=== PATIENT | male | born 1990 | race Caucasian/White ===

== ENCOUNTER 2017-12-02 09:15 | Inpatient (IN) | payer OTHER ==
[2017-12-02] MEDS: CEFAZOLIN 1 GM/50 ML (PMX) 50 ML IVPB (10:00)
[2017-12-02 10:21] LABS: ADD MAN DIFF? NO
[2017-12-02 10:23] LABS: BASOPHIL # 0.1 10^3/ul (0.0-0.1); BASOPHILS % 0.8 % (0.0-2.0); EOSINOPHILS # 0.2 10^3/ul (0.0-0.5); EOSINOPHILS % 2.7 % (0.0-7.0); HEMATOCRIT 45.9 % (42.0-52.0); HEMOGLOBIN 15.9 g/dl (14.0-18.0); LYMPHOCYTES # 2.2 10^3/ul (0.8-2.9); LYMPHOCYTES % 36.5 % (15.0-51.0); MEAN CORPUSCULAR HGB CONC 34.6 g/dl (32.0-37.0); MEAN CORPUSCULAR VOLUME 86.6 fl (82.0-101.0); MEAN PLATELET VOLUME 9.1 fl (7.4-10.4); MONOCYTE # 0.5 10^3/ul (0.3-0.9); NEUTROPHIL # 3.1 10^3/ul (1.6-7.5); NEUTROPHILS % 51.7 % (39.0-77.0); PLATELET COUNT 316 10^3/UL (140-415); RED CELL DISTRIBUTION WIDTH 12.7 % (11.5-14.5)
[2017-12-02 10:42] LABS: PROTIME 12.2 Sec (11.9-14.9)
[2017-12-02 10:43] LABS: PARTIAL THROMBOPLASTIN TIME 30.3 Sec (25.0-35.0)
[2017-12-02 10:53] LABS: ALANINE AMINOTRANSFERASE 113 IU/L (13-69); ALBUMIN 4.4 g/dl (3.3-4.9); ALBUMIN/GLOBULIN RATIO 1.12; ALKALINE PHOSPHATASE 72 IU/L (42-121); ANION GAP 17 (8-16); ASPARTATE AMINO TRANSFERASE 63 IU/L (15-46); BILIRUBIN,INDIRECT 0.3 mg/dl (0-1.1); BILIRUBIN,TOTAL 0.3 mg/dl (0.2-1.3); BLOOD UREA NITROGEN 8 mg/dl (7-20); CALCIUM 9.2 mg/dl (8.4-10.2); CARBON DIOXIDE 24 mmol/L (21-31); CHLORIDE 108 mmol/L (97-110); CREATININE 0.85 mg/dl (0.61-1.24); GLUCOSE 97 mg/dl (70-220); POTASSIUM 3.9 mmol/L (3.5-5.1); SODIUM 145 mmol/L (135-144); TOTAL PROTEIN 8.3 g/dl (6.1-8.1)
[2017-12-02] MEDS ORDERED: ROCURONIUM 50 MG INJ ×2 (15:13→15:35)
[2017-12-02] MEDS ORDERED: MIDAZOLAM 1 MG/ML 2 ML INJ (15:13)
[2017-12-02] MEDS ORDERED: SUCCINYLCHOLINE CHLORIDE 100 MG/5 ML SYG IV (15:13)
[2017-12-02] MEDS ORDERED: PROPOFOL 20 ML (15:13)
[2017-12-02] MEDS ORDERED: CEFAZOLIN 1 GM INJ (15:25)
[2017-12-02] MEDS ORDERED: hydrALAzine 20 MG INJ (15:25)
[2017-12-02] MEDS ORDERED: LABETALOL HCL 20MG INJ (15:25)
[2017-12-02] MEDS ORDERED: LABETALOL HCL 20MG INJ IV (15:30)
[2017-12-02] MEDS ORDERED: METOCLOPRAMIDE 10 MG INJ IV (15:30)
[2017-12-02] MEDS ORDERED: FENTAnyl 50 MCG/ML VIAL IV ×2 (15:30)
[2017-12-02] MEDS ORDERED: OXYCODONE/ACETAMINOPHEN (5/325) TAB PO (15:30)
[2017-12-02] MEDS ORDERED: EPHEDrine SULFATE 50 MG/5 ML SYG IV (15:30)
[2017-12-02] MEDS ORDERED: HYDROmorphONE 1 MG/5 ML IV SYRINGE IV (15:30)
[2017-12-02] MEDS ORDERED: hydrALAzine 20 MG INJ IV (15:30)
[2017-12-02] MEDS ORDERED: METOCLOPRAMIDE 10 MG INJ (15:50)
[2017-12-02] MEDS ORDERED: KETOROLAC 30 MG INJ (15:50)
[2017-12-02] MEDS ORDERED: DEXAMETHASONE 4 MG/ML 1 ML INJ (15:50)
[2017-12-02] MEDS ORDERED: ONDANSETRON 4 MG INJ (15:50)
[2017-12-02] MEDS: IOHEXOL 300MG/ML 30 ML BTL (15:55)
[2017-12-02] MEDS ORDERED: SUGAMMADEX SODIUM 200 MG/2 ML VIAL IV (16:20)
[2017-12-02] MEDS: HYDROmorphONE 1 MG/5 ML IV SYRINGE IV ×4 (16:39→17:31)
[2017-12-02] MEDS: FENTAnyl 50 MCG/ML VIAL IV ×2 (16:47→17:00)
[2017-12-02] MEDS: DIPHENHYDRAMINE 50 MG INJ IV (16:47)
[2017-12-02] MEDS ORDERED: BISACODYL (EC) 5 MG TAB PO (17:30)
[2017-12-02] MEDS ORDERED: ACETAMINOPHEN 325 MG TAB PO (17:30)
[2017-12-02] MEDS ORDERED: NACL 0.9% 3 ML SYG IV (17:30)
[2017-12-02] MEDS: SOD CHLORIDE 0.9% 1,000 ML IV ×2 (17:31→21:52)
[2017-12-02] MEDS: BELLADONNA ALK/OPIUM SUPP PR (17:40)
[2017-12-02] MEDS: MEPERIDINE 25 MG INJ IV (18:20)
[2017-12-02] MEDS: ONDANSETRON 4 MG INJ IV (18:20)
[2017-12-02] MEDS: OXYCODONE/ACETAMINOPHEN (5/325) TAB PO (20:02)
[2017-12-02] MEDS: ATORVASTATIN 10 MG TAB PO (21:53)
[2017-12-02] MEDS: BENAZEPRIL 10 MG TAB PO (21:53)
[2017-12-03] MEDS: morphine 2 MG INJ IV ×5 (00:14→23:51)
[2017-12-03] MEDS: SOD CHLORIDE 0.9% 1,000 ML IV ×3 (04:28→19:32)
[2017-12-03 05:23] LABS: HEMOGLOBIN A1C 5.8 % (0-5.9)
[2017-12-03 05:34] LABS: ALANINE AMINOTRANSFERASE 91 IU/L (13-69); ALBUMIN 3.8 g/dl (3.3-4.9); ALBUMIN/GLOBULIN RATIO 1.05; ALKALINE PHOSPHATASE 53 IU/L (42-121); ANION GAP 16 (8-16); ASPARTATE AMINO TRANSFERASE 45 IU/L (15-46); BILIRUBIN,INDIRECT 0.4 mg/dl (0-1.1); BILIRUBIN,TOTAL 0.4 mg/dl (0.2-1.3); BLOOD UREA NITROGEN 8 mg/dl (7-20); CALCIUM 8.9 mg/dl (8.4-10.2); CARBON DIOXIDE 23 mmol/L (21-31); CHLORIDE 105 mmol/L (97-110); CHOL/HDL RATIO 3.8 RATIO; CHOLESTEROL 173 mg/dl (100-200); CREATININE 0.76 mg/dl (0.61-1.24); GLUCOSE 160 mg/dl (70-220); HDL CHOLESTEROL 45 mg/dl (30-63); LDL CHOLESTEROL,CALCULATED 103 mg/dl; MAGNESIUM 1.8 mg/dl (1.7-2.5); POTASSIUM 4.1 mmol/L (3.5-5.1); SODIUM 140 mmol/L (135-144); TOTAL PROTEIN 7.4 g/dl (6.1-8.1); TRIGLYCERIDES 123 mg/dl (0-149)
[2017-12-03 05:51] LABS: ADD MAN DIFF? NO
[2017-12-03 06:00] LABS: BASOPHILS % 0.1 % (0.0-2.0); HEMATOCRIT 41.2 % (42.0-52.0); HEMOGLOBIN 14.3 g/dl (14.0-18.0); LYMPHOCYTES # 0.9 10^3/ul (0.8-2.9); LYMPHOCYTES % 11.8 % (15.0-51.0); MEAN CORPUSCULAR HEMOGLOBIN 30.7 pg (29.0-33.0); MEAN CORPUSCULAR HGB CONC 34.7 g/dl (32.0-37.0); MEAN CORPUSCULAR VOLUME 88.4 fl (82.0-101.0); MEAN PLATELET VOLUME 9.4 fl (7.4-10.4); MONOCYTE # 0.4 10^3/ul (0.3-0.9); MONOCYTES % 5.1 % (0.0-11.0); NEUTROPHILS % 82.6 % (39.0-77.0); PLATELET COUNT 314 10^3/UL (140-415); RED BLOOD COUNT 4.66 10^6/ul (4.70-6.10); RED CELL DISTRIBUTION WIDTH 12.8 % (11.5-14.5)
[2017-12-03 06:00] LABS: WHITE BLOOD COUNT 7.2 10^3/ul (4.8-10.8)
[2017-12-03] MEDS: IOHEXOL 300MG/ML 150 ML BTL (09:41)
[2017-12-03] MEDS: SOD CHLORIDE 0.9% 100 ML (09:41)
[2017-12-03] MEDS: BENAZEPRIL 10 MG TAB PO (10:02)
[2017-12-03] MEDS: ATORVASTATIN 10 MG TAB PO (20:19)
[2017-12-04] MEDS: SOD CHLORIDE 0.9% 1,000 ML IV ×4 (03:52→20:34)
[2017-12-04 05:54] LABS: ADD MAN DIFF? NO
[2017-12-04 05:58] LABS: BASOPHILS % 0.5 % (0.0-2.0); EOSINOPHILS # 0.1 10^3/ul (0.0-0.5); EOSINOPHILS % 0.6 % (0.0-7.0); HEMATOCRIT 40.2 % (42.0-52.0); HEMOGLOBIN 13.6 g/dl (14.0-18.0); LYMPHOCYTES # 2.1 10^3/ul (0.8-2.9); LYMPHOCYTES % 23.4 % (15.0-51.0); MEAN CORPUSCULAR HGB CONC 33.8 g/dl (32.0-37.0); MEAN CORPUSCULAR VOLUME 88.7 fl (82.0-101.0); MEAN PLATELET VOLUME 9.2 fl (7.4-10.4); MONOCYTE # 0.7 10^3/ul (0.3-0.9); MONOCYTES % 7.7 % (0.0-11.0); NEUTROPHILS % 67.6 % (39.0-77.0); PLATELET COUNT 295 10^3/UL (140-415); RED BLOOD COUNT 4.53 10^6/ul (4.70-6.10); RED CELL DISTRIBUTION WIDTH 13.2 % (11.5-14.5)
[2017-12-04 05:58] LABS: WHITE BLOOD COUNT 8.9 10^3/ul (4.8-10.8)
[2017-12-04 06:31] LABS: ANION GAP 13 (8-16); BLOOD UREA NITROGEN 11 mg/dl (7-20); CALCIUM 8.3 mg/dl (8.4-10.2); CARBON DIOXIDE 26 mmol/L (21-31); CHLORIDE 106 mmol/L (97-110); CREATININE 0.77 mg/dl (0.61-1.24); GLUCOSE 99 mg/dl (70-220); MAGNESIUM 1.9 mg/dl (1.7-2.5); PHOSPHORUS 4.3 mg/dl (2.5-4.9); SODIUM 141 mmol/L (135-144)
[2017-12-04] MEDS: morphine 2 MG INJ IV ×4 (08:12→23:29)
[2017-12-04] MEDS: BENAZEPRIL 10 MG TAB PO (08:13)
[2017-12-04] MEDS: SOD CHLORIDE 0.9% 500 ML ×2 (11:00→11:40)
[2017-12-04] MEDS: IOHEXOL 300MG/ML 30 ML BTL (11:10)
[2017-12-04] MEDS: FENTAnyl 50 MCG/ML VIAL ×4 (11:26→13:00)
[2017-12-04] MEDS: MIDAZOLAM 1 MG/ML 2 ML INJ ×2 (11:29→11:53)
[2017-12-04] MEDS: LIDOCAINE 1% (MPF) 5 ML VIAL (11:40)
[2017-12-04] MEDS: HYDROCODONE/APAP (5/325) TAB PO (14:21)
[2017-12-04] MEDS: ATORVASTATIN 10 MG TAB PO (20:34)
[2017-12-04] MEDS: ONDANSETRON 4 MG INJ IV (20:58)
[2017-12-05] MEDS: SOD CHLORIDE 0.9% 1,000 ML IV ×3 (03:37→17:34)
[2017-12-05] MEDS: morphine 2 MG INJ IV ×2 (05:50→13:25)
[2017-12-05] MEDS: BENAZEPRIL 10 MG TAB PO (09:45)
[2017-12-05] MEDS: HYDROCODONE/APAP (5/325) TAB PO ×2 (09:52→17:40)
[2017-12-05] MEDS: ONDANSETRON 4 MG INJ IV ×2 (14:24→18:51)
[2017-12-05] MEDS: CEFAZOLIN 1 GM/50 ML (PMX) 50 ML IVPB ×2 (17:34→22:53)
[2017-12-05] MEDS: ATORVASTATIN 10 MG TAB PO (21:09)
[2017-12-06] MEDS: morphine 2 MG INJ IV ×2 (00:47→09:48)
[2017-12-06] MEDS: ONDANSETRON 4 MG INJ IV ×2 (00:51→09:48)
[2017-12-06] MEDS: SOD CHLORIDE 0.9% 1,000 ML IV ×4 (00:52→21:52)
[2017-12-06] MEDS: CEFAZOLIN 1 GM/50 ML (PMX) 50 ML IVPB ×3 (06:15→21:48)
[2017-12-06] MEDS: ATORVASTATIN 10 MG TAB PO (20:52)
[2017-12-06] MEDS: HYDROCODONE/APAP (5/325) TAB PO (20:53)
[2017-12-07] MEDS: SOD CHLORIDE 0.9% 1,000 ML IV ×4 (05:33→14:33)
[2017-12-07] MEDS: CEFAZOLIN 1 GM/50 ML (PMX) 50 ML IVPB ×3 (05:33→22:07)
[2017-12-07] MEDS ORDERED: ROCURONIUM 50 MG INJ ×2 (07:00→17:06)
[2017-12-07] MEDS: ONDANSETRON 4 MG INJ IV ×3 (08:48→20:37)
[2017-12-07] MEDS: morphine 2 MG INJ IV ×2 (08:48→13:36)
[2017-12-07] MEDS ORDERED: MEPERIDINE 100 MG INJ (17:06)
[2017-12-07] MEDS ORDERED: GLYCOPYRROLATE 0.4 MG INJ ×3 (17:06→19:58)
[2017-12-07] MEDS ORDERED: SUCCINYLCHOLINE CHLORIDE 100 MG/5 ML SYG IV (17:06)
[2017-12-07] MEDS ORDERED: PROPOFOL 20 ML (17:06)
[2017-12-07] MEDS ORDERED: NEOSTIGMINE 3 MG/3 ML SYRINGE ×2 (17:06→19:58)
[2017-12-07] MEDS ORDERED: LIDOCAINE 2% (SDV) 5 ML INJ (17:06)
[2017-12-07] MEDS: IOHEXOL 300MG/ML 30 ML BTL (17:59)
[2017-12-07] MEDS ORDERED: IOHEXOL 300MG/ML 30 ML BTL (19:49)
[2017-12-07] MEDS ORDERED: EPHEDrine SULFATE 50 MG/5 ML SYG IV (20:30)
[2017-12-07] MEDS ORDERED: HYDROmorphONE 1 MG/5 ML IV SYRINGE IV (20:30)
[2017-12-07] MEDS ORDERED: MEPERIDINE 25 MG INJ IV (20:30)
[2017-12-07] MEDS ORDERED: LABETALOL HCL 20MG INJ IV (20:30)
[2017-12-07] MEDS ORDERED: FENTAnyl 50 MCG/ML VIAL IV ×3 (20:30)
[2017-12-07] MEDS ORDERED: OXYCODONE/ACETAMINOPHEN (5/325) TAB PO ×2 (20:30)
[2017-12-07] MEDS ORDERED: MIDAZOLAM 1 MG/ML 2 ML INJ IV (20:30)
[2017-12-07] MEDS ORDERED: hydrALAzine 20 MG INJ IV (20:30)
[2017-12-07] MEDS: METOCLOPRAMIDE 10 MG INJ IV ×2 (20:44→21:00)
[2017-12-07] MEDS: HYDROmorphONE 1 MG/5 ML IV SYRINGE IV ×2 (20:47→22:02)
[2017-12-07] MEDS: DIPHENHYDRAMINE 50 MG INJ IV (20:49)
[2017-12-07 20:50] LABS: ADD MAN DIFF? NO
[2017-12-07 20:56] LABS: BASOPHIL # 0.1 10^3/ul (0.0-0.1); BASOPHILS % 0.4 % (0.0-2.0); EOSINOPHILS # 0.2 10^3/ul (0.0-0.5); EOSINOPHILS % 1.1 % (0.0-7.0); HEMATOCRIT 44.7 % (42.0-52.0); HEMOGLOBIN 15.7 g/dl (14.0-18.0); LYMPHOCYTES # 2.6 10^3/ul (0.8-2.9); LYMPHOCYTES % 18.3 % (15.0-51.0); MEAN CORPUSCULAR HEMOGLOBIN 30.6 pg (29.0-33.0); MEAN CORPUSCULAR HGB CONC 35.1 g/dl (32.0-37.0); MEAN CORPUSCULAR VOLUME 87.1 fl (82.0-101.0); MEAN PLATELET VOLUME 8.9 fl (7.4-10.4); MONOCYTE # 1.1 10^3/ul (0.3-0.9); MONOCYTES % 7.5 % (0.0-11.0); NEUTROPHIL # 10.3 10^3/ul (1.6-7.5); NEUTROPHILS % 72.2 % (39.0-77.0); PLATELET COUNT 324 10^3/UL (140-415); RED BLOOD COUNT 5.13 10^6/ul (4.70-6.10); RED CELL DISTRIBUTION WIDTH 12.5 % (11.5-14.5)
[2017-12-07 20:56] LABS: WHITE BLOOD COUNT 14.2 10^3/ul (4.8-10.8)
[2017-12-07] MEDS: ATORVASTATIN 10 MG TAB PO (21:00)
[2017-12-07 21:16] LABS: ANION GAP 18 (8-16); BLOOD UREA NITROGEN 12 mg/dl (7-20); CALCIUM 8.8 mg/dl (8.4-10.2); CARBON DIOXIDE 21 mmol/L (21-31); CHLORIDE 104 mmol/L (97-110); CREATININE 1.31 mg/dl (0.61-1.24); GLUCOSE 117 mg/dl (70-220); POTASSIUM 3.9 mmol/L (3.5-5.1); SODIUM 139 mmol/L (135-144)
[2017-12-08] MEDS: SOD CHLORIDE 0.9% 1,000 ML IV ×4 (00:43→20:13)
[2017-12-08] MEDS: HYDROCODONE/APAP (5/325) TAB PO ×3 (00:44→12:38)
[2017-12-08 02:22] LABS: ADD MAN DIFF? NO
[2017-12-08 02:23] LABS: BASOPHILS % 0.1 % (0.0-2.0); EOSINOPHILS % 0.1 % (0.0-7.0); HEMATOCRIT 41.6 % (42.0-52.0); HEMOGLOBIN 14.2 g/dl (14.0-18.0); LYMPHOCYTES # 0.8 10^3/ul (0.8-2.9); LYMPHOCYTES % 5.6 % (15.0-51.0); MEAN CORPUSCULAR HEMOGLOBIN 29.9 pg (29.0-33.0); MEAN CORPUSCULAR HGB CONC 34.1 g/dl (32.0-37.0); MEAN CORPUSCULAR VOLUME 87.6 fl (82.0-101.0); MONOCYTE # 0.8 10^3/ul (0.3-0.9); MONOCYTES % 5.8 % (0.0-11.0); NEUTROPHILS % 88.1 % (39.0-77.0); PLATELET COUNT 307 10^3/UL (140-415); RED BLOOD COUNT 4.75 10^6/ul (4.70-6.10); RED CELL DISTRIBUTION WIDTH 12.7 % (11.5-14.5)
[2017-12-08 02:23] LABS: WHITE BLOOD COUNT 13.6 10^3/ul (4.8-10.8)
[2017-12-08] MEDS: CEFAZOLIN 1 GM/50 ML (PMX) 50 ML IVPB ×3 (05:54→21:30)
[2017-12-08 06:20] LABS: ADD MAN DIFF? NO
[2017-12-08 06:23] LABS: WHITE BLOOD COUNT 12.7 10^3/ul (4.8-10.8)
[2017-12-08 06:23] LABS: BASOPHILS % 0.1 % (0.0-2.0); EOSINOPHILS % 0.1 % (0.0-7.0); HEMATOCRIT 41.2 % (42.0-52.0); HEMOGLOBIN 14.1 g/dl (14.0-18.0); LYMPHOCYTES # 0.9 10^3/ul (0.8-2.9); LYMPHOCYTES % 7.4 % (15.0-51.0); MEAN CORPUSCULAR HEMOGLOBIN 29.9 pg (29.0-33.0); MEAN CORPUSCULAR HGB CONC 34.2 g/dl (32.0-37.0); MEAN CORPUSCULAR VOLUME 87.5 fl (82.0-101.0); MEAN PLATELET VOLUME 9.1 fl (7.4-10.4); MONOCYTE # 0.8 10^3/ul (0.3-0.9); MONOCYTES % 6.2 % (0.0-11.0); NEUTROPHIL # 10.9 10^3/ul (1.6-7.5); NEUTROPHILS % 85.9 % (39.0-77.0); PLATELET COUNT 312 10^3/UL (140-415); RED BLOOD COUNT 4.71 10^6/ul (4.70-6.10); RED CELL DISTRIBUTION WIDTH 12.8 % (11.5-14.5)
[2017-12-08 07:01] LABS: ANION GAP 14 (8-16); BLOOD UREA NITROGEN 10 mg/dl (7-20); CALCIUM 8.8 mg/dl (8.4-10.2); CARBON DIOXIDE 27 mmol/L (21-31); CHLORIDE 103 mmol/L (97-110); CREATININE 0.98 mg/dl (0.61-1.24); GLUCOSE 106 mg/dl (70-220); POTASSIUM 4.2 mmol/L (3.5-5.1); SODIUM 140 mmol/L (135-144)
[2017-12-08] MEDS: HYDROmorphONE 1 MG/ML SYG IV (14:31)
[2017-12-08] MEDS: HYDROmorphONE 0.5 MG/0.5 ML SYG IV ×3 (17:10→23:11)
[2017-12-08] MEDS: ATORVASTATIN 10 MG TAB PO (20:14)
[2017-12-09] MEDS: SOD CHLORIDE 0.9% 1,000 ML IV ×3 (03:57→16:02)
[2017-12-09] MEDS: HYDROmorphONE 0.5 MG/0.5 ML SYG IV ×2 (03:58→09:09)
[2017-12-09] MEDS: CEFAZOLIN 1 GM/50 ML (PMX) 50 ML IVPB ×2 (05:39→14:11)
[2017-12-09] MEDS: ONDANSETRON 4 MG INJ IV (12:33)
[2017-12-09] MEDS: morphine 2 MG INJ IV (12:35)
[2017-12-09] MEDS: HYDROCODONE/APAP (5/325) TAB PO (15:20)
[2017-12-09] MEDS ORDERED: TAMSULOSIN (SR) 0.4 MG CAP PO (21:00)
== END 2017-12-09 23:41 | disposition home or self-care (01) | DRG 660 ==
LOC: SDS 09:15 → 6WM 12-07 21:55 → SDS 20:35 → MS1 20:15
PROC: 0TCB8ZZ Extirpation of Matter from Bladder, Via Natural or Artificial Opening Endoscopic (ICD-10-PCS; 2017-12-02 11:30)
PROC: 0T7D8ZZ Dilation of Urethra, Via Natural or Artificial Opening Endoscopic (ICD-10-PCS; 2017-12-02 11:30)
PROC: 0T9180Z Drainage of Left Kidney with Drainage Device, Via Natural or Artificial Opening Endoscopic (ICD-10-PCS; principal; 2017-12-02 15:16)
PROC: 0TC48ZZ Extirpation of Matter from Left Kidney Pelvis, Via Natural or Artificial Opening Endoscopic (ICD-10-PCS; 2017-12-02 15:16)
PROC: 0TP98DZ Removal of Intraluminal Device from Ureter, Via Natural or Artificial Opening Endoscopic (ICD-10-PCS; 2017-12-02 15:16)
PROC: 0T25X0Z Change Drainage Device in Kidney, External Approach (ICD-10-PCS; 2017-12-02 15:16)
PROC: BT12YZZ Fluoroscopy of Left Kidney using Other Contrast (ICD-10-PCS; 2017-12-02 15:16)
PROC: 0T9130Z Drainage of Left Kidney with Drainage Device, Percutaneous Approach (ICD-10-PCS; 2017-12-02 15:16)
DX: T83.89XA Other specified complication of genitourinary prosthetic devices, implants and grafts, initial encounter (principal); N13.2 Hydronephrosis with renal and ureteral calculous obstruction; Z68.41 Body mass index [BMI] 40.0-44.9, adult; Q63.2 Ectopic kidney; I10 Essential (primary) hypertension; E78.5 Hyperlipidemia, unspecified; E66.01 Morbid (severe) obesity due to excess calories; N35.9 Urethral stricture, unspecified; Z87.442 Personal history of urinary calculi; Y73.8 Miscellaneous gastroenterology and urology devices associated with adverse incidents, not elsewhere classified; N32.89 Other specified disorders of bladder; N21.0 Calculus in bladder
CPT/HCPCS: 74178; 74430; 74475; 76942; 80048; 80053; 80061; 83036; 83735; 84100; 85025; 85610; 85730; 86850; 86900; 86901; 86920; 88300